=== PATIENT | male | born 1950 | race Caucasian/White ===

== ENCOUNTER → 2016-09-12 | Outpatient (CLI) | payer MEDICARE ==
[~2016-09-12] MED LIST: ISOVUE-370 76% 100ML VIAL (Q9967) As Ordered ONE
--- NOTE | 2016-09-12 22:12 | REP ---
CT chest with IV contrast 09/12/16 comparison: CT chest with contrast 07/27/2016 Indication: Unspecified bacterial pneumonia Technique: Following dynamic IV contrast administration with 75 ml Isovue 370 mg/ml, 3 mm continuous spiral axial sections performed through chest Findings: Thoracic aorta is without aneurysm or dissection. Moderate calcifications in the left anterior descending coronary artery. There is a pericardial effusion of 16 mm maximal depth, seen anteriorly. There are a few small nonspecific mediastinal nodes, none of which are pathologically enlarged. Small amount of atelectatic changes are present within the lung bases bilaterally. There are no alveolar infiltrates or pleural effusions. There has been significant improvement in the patchy ill-defined areas of reticular interstitial infiltrates without discrete pulmonary nodules seen on prior CT chest 07/27/2016. Visualized portions of spleen, pancreas, gallbladder are normal. There is mild diffuse fatty infiltration of liver. Adrenal glands are normal moderate stool within the colon Impression: Pericardial effusion of 16 mm maximal depth anteriorly. Moderate coronary calcifications in left anterior descending coronary artery and to a lesser extent circumflex and right coronary arteries Few small nonspecific mediastinal nodes Small amount of bibasilar atelectasis/scarring with significant improvement in the patchy ill-defined areas of reticular interstitial infiltrates without discrete pulmonary nodules seen on prior CT chest 07/27/2016 Mild diffuse fatty infiltration of liver Signed by May Salvador MD 09/12/2016 10:03 P
== END ==
LOC: M RAD 10:03
PROVIDERS: ATTEND Nurse Practitioner Psychiatric/Mental Health
DX: I31.3 Pericardial effusion (noninflammatory) (principal); R91.8 Other nonspecific abnormal finding of lung field
CPT/HCPCS: 71260; Q9967

== ENCOUNTER → 2016-12-18 | Outpatient (CLI) | payer MEDICARE ==
[2016-12-18 19:25] LABS: ALBUMIN 3.7 GM/DL (3.2-5.2); ALBUMIN/GLOBULIN RATIO 1.76 (1.00-1.93); BILIRUBIN,DIRECT 0.1 MG/DL (0.0-0.2); BILIRUBIN,TOTAL 0.4 MG/DL (0.2-1.0); TOTAL PROTEIN 5.8 GM/DL (6.4-8.2)
== END ==
LOC: M WUC 11:21
PROVIDERS: ATTEND Internal Medicine Gastroenterology
DX: K21.9 Gastro-esophageal reflux disease without esophagitis (principal); E66.9 Obesity, unspecified; Z86.010 Personal history of colon polyps; M72.0 Palmar fascial fibromatosis [Dupuytren]; F10.10 Alcohol abuse, uncomplicated

== ENCOUNTER → 2017-08-22 | Outpatient (CLI) | payer MEDICARE ==
--- NOTE | 2017-08-22 16:14 | REP ---
MRI left hip without contrast: History: Left hip pain. Physical therapy not helping. Comparison study is CT study of the abdomen and pelvis from May 08, 2016. MR technique: Axial, coronal, and sagittal imaging planes are utilized. T2 and T2-weighted scans were obtained in the usual fashion with and without fat saturation. MRI findings: There is moderate nodular enlargement of the prostate gland. The pelvic soft tissues are otherwise unremarkable. No pelvic mass or adenopathy is seen. No abdominal wall defect is observed. There is moderate osteoarthritis of the left hip with obliteration of the superior weightbearing joint space with full-thickness cartilage loss. There is some degenerative change in the superior acetabular labral cartilage. Early subcortical cyst formation is seen in the superior acetabulum. There is a prominent pattern of marrow edema on both sides of the left hip articulation, particularly in the femoral head and neck extending into the intertrochanteric region. This area of marrow edema may reflect stress reaction. No periosteal reaction is seen. There is osteoarthritic spurring along the margin of the femoral head. There is some soft tissue edema involving the joint capsule superiorly and laterally. There is some periarticular edema in the proximal thigh musculature anterior to the proximal femur as well. There is prominent soft tissue edema pattern adjacent to the greater tuberosity of the proximal femur bilaterally consistent with tendonitis. On the right, there is a bursal fluid collection adjacent to the greater trochanter consistent with bursitis. No fluid collection is visible on the left. There is, however, a moderate left-sided hip joint effusion. No loose body is seen. The ligamentum teres is intact. There is no evidence to suggest avascular necrosis or bony destructive lesion. The left hip joint space narrowing has progressed in the interval since the May 08, [address] imaging. Impression: Moderate to advanced osteoarthritis with reactive marrow edema in the femoral head and acetabulum on the left. Possible stress response edema in the intertrochanteric region of the left femur. There is a joint effusion on the left. There is periarticular soft-tissue edema. Peritrochanteric tendonitis pattern is also seen. Tendino-bursitis changes are noted incidentally on the right. Signed by Diomedes Saxena MD 08/22/2017 04:29 P
== END ==
LOC: M RAD 13:50
PROVIDERS: ATTEND Nurse Practitioner Family
DX: M16.12 Unilateral primary osteoarthritis, left hip (principal); R60.0 Localized edema

== ENCOUNTER → 2018-03-27 | Outpatient (CLI) | payer MEDICARE ==
[2018-03-27 13:27] LABS: BASO # 0.1 10^3/uL (0.0-0.2); BASO % 0.9 % (0.0-1.0); EOS # 0.2 10^3/uL (0.0-0.50); EOS % 3.3 % (0.0-3.0); HEMATOCRIT 41.9 % (42.0-52.0); HEMOGLOBIN 14.7 g/dl (13.5-17.5); IMMATURE GRANULOCYTE # 0.1 10^3/uL (0-0); IMMATURE GRANULOCYTE % 1.1 % (0-3.0); LYMPH # 0.9 10^3/uL (1.5-4.5); LYMPH % 16.9 % (24.0-44.0); MEAN CORPUSCULAR HEMOGLOBIN 32.5 pg (27.0-33.0); MEAN CORPUSCULAR HGB CONC 35.1 g/dl (32.0-36.5); MEAN CORPUSCULAR VOLUME 92.7 fl (80.0-96.0); MONO # 0.7 10^3/uL (0.0-0.8); MONO % 12.3 % (0.0-5.0); NEUTROPHILS # 3.6 10^3/uL (1.8-7.7); NEUTROPHILS % 65.5 % (36.0-66.0); PLATELET COUNT, AUTOMATED 201 10^3/uL (150-450); RED BLOOD COUNT 4.52 10^6/uL (4.30-6.10); RED CELL DISTRIBUTION WIDTH 13.7 % (11.5-14.5); WHITE BLOOD COUNT 5.5 10^3/uL (4.0-10.0)
[2018-03-27 13:55] LABS: ALBUMIN 3.6 GM/DL (3.2-5.2); ALBUMIN/GLOBULIN RATIO 1.38 (1.00-1.93); ALKALINE PHOSPHATASE 75 U/L (45-117); ALT/SGPT 42 U/L (12-78); ANION GAP 7 MEQ/L (8-16); AST/SGOT 23 U/L (7-37); BILIRUBIN,TOTAL 0.5 MG/DL (0.2-1.0); BLOOD UREA NITROGEN 15 MG/DL (7-18); CALCIUM LEVEL 8.8 MG/DL (8.8-10.2); CARBON DIOXIDE LEVEL 28 MEQ/L (21-32); CHLORIDE LEVEL 107 MEQ/L (98-107); CHOLESTEROL LEVEL 161 MG/DL (<200); CHOLESTEROL RISK RATIO 2.683 (<5); CREATININE FOR GFR 0.77 MG/DL (0.70-1.30); GLOMERULAR FILTRATION RATE > 60.0 (>49); GLUCOSE, FASTING 93 MG/DL (70-100); HDL CHOLESTEROL 60 MG/DL (>40); LDL CHOLESTEROL 74.2 MG/DL (<100); NON-HDL-C 101 MG/DL; POTASSIUM SERUM 4.5 MEQ/L (3.5-5.1); SODIUM LEVEL 142 MEQ/L (136-145); TOTAL PROTEIN 6.2 GM/DL (6.4-8.2); TRIGLYCERIDES LEVEL 134 MG/DL (<150)
== END ==
LOC: M WUC 11:55
DX: I10 Essential (primary) hypertension (principal); E78.00 Pure hypercholesterolemia, unspecified
CPT/HCPCS: 80053

== ENCOUNTER → 2019-03-31 | Outpatient (CLI) | payer MEDICARE ==
[2019-03-31 13:24] LABS: BASO # 0.1 10^3/uL (0.0-0.2); BASO % 1.1 % (0.0-1.0); EOS # 0.2 10^3/uL (0.0-0.50); EOS % 3.8 % (0.0-3.0); HEMATOCRIT 43.6 % (42.0-52.0); HEMOGLOBIN 14.8 g/dl (13.5-17.5); LYMPH # 0.9 10^3/uL (1.5-4.5); LYMPH % 18.9 % (24.0-44.0); MEAN CORPUSCULAR HEMOGLOBIN 32.7 pg (27.0-33.0); MEAN CORPUSCULAR HGB CONC 33.9 g/dl (32.0-36.5); MEAN CORPUSCULAR VOLUME 96.5 fl (80.0-96.0); MONO # 0.5 10^3/uL (0.0-0.8); NEUTROPHILS % 64.6 % (36.0-66.0); PLATELET COUNT, AUTOMATED 183 10^3/uL (150-450); RED BLOOD COUNT 4.52 10^6/uL (4.30-6.10); WHITE BLOOD COUNT 4.7 10^3/uL (4.0-10.0)
[2019-03-31 13:53] LABS: ALBUMIN 3.8 GM/DL (3.2-5.2); ALT/SGPT 44 U/L (12-78); BILIRUBIN,TOTAL 0.5 MG/DL (0.2-1.0); BLOOD UREA NITROGEN 15 MG/DL (7-18); CALCIUM LEVEL 8.8 MG/DL (8.8-10.2); CARBON DIOXIDE LEVEL 27 MEQ/L (21-32); CHLORIDE LEVEL 109 MEQ/L (98-107); CHOLESTEROL LEVEL 157 MG/DL (<200); CHOLESTEROL RISK RATIO 2.754 (<5); GLOMERULAR FILTRATION RATE > 60.0 (>42); GLUCOSE, FASTING 91 MG/DL (70-100); HDL CHOLESTEROL 57 MG/DL (>40); LDL CHOLESTEROL 75 MG/DL (<100); NON-HDL-C 100 MG/DL; POTASSIUM SERUM 4.4 MEQ/L (3.5-5.1); SODIUM LEVEL 141 MEQ/L (136-145); TOTAL PROTEIN 6.2 GM/DL (6.4-8.2); TRIGLYCERIDES LEVEL 123 MG/DL (<150)
[2019-03-31 13:56] LABS: TOTAL 25(OH) VITAMIN D 25.4 NG/ML (30.0-100.0)
== END ==
LOC: M WUC 09:55
PROVIDERS: ATTEND Nurse Practitioner Family
DX: E55.9 Vitamin D deficiency, unspecified (principal); I10 Essential (primary) hypertension; N40.0 Benign prostatic hyperplasia without lower urinary tract symptoms; E78.00 Pure hypercholesterolemia, unspecified

== ENCOUNTER → 2020-06-09 | Outpatient (CLI) | payer MEDICARE ==
--- NOTE | 2020-06-14 10:46 | REP ---
CHEST X-RAY CLINICAL: Shortness of breath. TECHNIQUE: PA and lateral. COMPARISON: 07/06/2016. FINDINGS: Very subtle lower lobe airspace disease cannot be excluded and should be correlated clinically. These findings cannot be confirmed on lateral radiograph. The mediastinum and cardiac silhouette are stable. Skeletal structures are intact. Previously noted nodular density in the right mid lung zone not visible on current exam. IMPRESSION: Cannot exclude subtle airspace disease to the bilateral lower lobes (left greater than right). Previously noted nodule in the right mid lung zone not visualized on current exam. MTDD
== END ==
LOC: M WUC 12:11
PROVIDERS: ATTEND Nurse Practitioner Adult Health
DX: R06.02 Shortness of breath (principal); R91.8 Other nonspecific abnormal finding of lung field

== ENCOUNTER → 2021-01-12 | Outpatient (CLI) | payer MEDICARE ==
[2021-01-12 16:51] LABS: ALBUMIN 3.9 GM/DL (3.2-5.2); PERCENT SATURATION 24.8 % (19.7-50.0)
== END ==
LOC: M WUC 11:03
PROVIDERS: ATTEND Orthopaedic Surgery
DX: Z01.818 Encounter for other preprocedural examination (principal); M16.9 Osteoarthritis of hip, unspecified; M25.551 Pain in right hip

== ENCOUNTER → 2021-01-28 | Outpatient (REF) | payer MEDICARE ==
[2021-01-28 16:21] LABS: APPEARANCE, URINE CLOUDY (CLEAR); BACTERIA, URINE AUTO NEGATIVE (NEGATIVE); BILIRUBIN, URINE AUTO NEGATIVE (NEGATIVE); BLOOD, URINE BLOOD NEGATIVE (NEGATIVE); COLOR, URINE AMBER (YELLOW); GLUCOSE, URINE (UA) AUTO NEGATIVE (NEGATIVE); KETONE, URINE AUTO NEGATIVE (NEGATIVE); LEUKOCYTE ESTERASE, URINE AUTO NEGATIVE (NEGATIVE); MUCUS, URINE SMALL (NEGATIVE); NITRITE, URINE AUTO NEGATIVE (NEGATIVE); PROTEIN, URINE AUTO NEGATIVE (NEGATIVE); RBC, URINE AUTO 1 /HPF (0-3); SPECIFIC GRAVITY URINE AUTO 1.019 (1.002-1.035); SQUAMOUS EPITHELIAL CELL UR AU 0 /HPF (0-6); UROBILINOGEN, URINE AUTO 0.2 mg/dL (0.0-2.0); WBC, URINE AUTO 1 /HPF (0-3)
[2021-01-28 16:22] LABS: INR 0.95; PARTIAL THROMBOPLASTIN TIME 27.3 SECONDS (24.2-38.5); PROTHROMBIN TIME 12.9 SECONDS (12.5-14.3)
== END ==
LOC: M LAB REF 15:50
PROVIDERS: ATTEND Internal Medicine
DX: Z01.810 Encounter for preprocedural cardiovascular examination (principal)

== ENCOUNTER → 2021-08-24 | Outpatient (CLI) | payer MEDICARE ==
--- NOTE | 2021-08-24 13:46 | REP ---
INDICATION: PAIN COMPARISON: None. TECHNIQUE: Internal rotation, external rotation, and Y view. FINDINGS: There is no evidence for acute fracture or dislocation. The glenohumeral joint is essentially intact and age-appropriate. The acromioclavicular joint demonstrates moderate to significant cortical irregularity and osteophytosis. IMPRESSION: Arthritic changes at the acromioclavicular joint. No obvious acute fracture or dislocation. <Electronically signed by Justin Samano > 08/24/21 [id number]
== END ==
LOC: M WUC 13:09
PROVIDERS: ATTEND Nurse Practitioner Adult Health
DX: M25.511 Pain in right shoulder (principal); M19.011 Primary osteoarthritis, right shoulder

== ENCOUNTER → 2021-11-23 | Outpatient (REF) | payer MEDICARE | LOC: M LAB REF 16:07 | PROVIDERS: ATTEND Nurse Practitioner Adult Health | DX: I10 Essential (primary) hypertension (principal); R97.20 Elevated prostate specific antigen [PSA] ==

== ENCOUNTER → 2021-12-08 | Outpatient (REF) | payer MEDICARE ==
[2021-12-08 14:32] LABS: APPEARANCE, URINE CLOUDY (CLEAR); BACTERIA, URINE AUTO NEGATIVE (NEGATIVE); BILIRUBIN, URINE AUTO NEGATIVE (NEGATIVE); BLOOD, URINE BLOOD NEGATIVE (NEGATIVE); COLOR, URINE AMBER (YELLOW); GLUCOSE, URINE (UA) AUTO NEGATIVE (NEGATIVE); KETONE, URINE AUTO NEGATIVE (NEGATIVE); LEUKOCYTE ESTERASE, URINE AUTO NEGATIVE (NEGATIVE); NITRITE, URINE AUTO NEGATIVE (NEGATIVE); PROTEIN, URINE AUTO NEGATIVE (NEGATIVE); RBC, URINE AUTO 0 /HPF (0-3); SPECIFIC GRAVITY URINE AUTO 1.015 (1.002-1.035); SQUAMOUS EPITHELIAL CELL UR AU 0 /HPF (0-6); UROBILINOGEN, URINE AUTO 0.2 mg/dL (0.0-2.0); WBC, URINE AUTO 1 /HPF (0-3)
== END ==
LOC: M SMT 13:17
PROVIDERS: ATTEND Urology
DX: N40.0 Benign prostatic hyperplasia without lower urinary tract symptoms (principal)

== ENCOUNTER → 2022-09-28 | Outpatient (CLI) | payer MEDICARE | LOC: M WUC 10:56 | PROVIDERS: ATTEND Internal Medicine Gastroenterology | DX: D50.9 Iron deficiency anemia, unspecified (principal); K57.30 Diverticulosis of large intestine without perforation or abscess without bleeding; K21.9 Gastro-esophageal reflux disease without esophagitis; Z86.010 Personal history of colon polyps; E66.9 Obesity, unspecified; K76.0 Fatty (change of) liver, not elsewhere classified ==

== ENCOUNTER → 2024-08-25 | Outpatient (CLI) | payer MEDICARE ==
[2024-08-25 13:16] LABS: BLOOD UREA NITROGEN 22 MG/DL (9-23); C REACTIVE PROTEIN QUANTITATIV < 0.50 MG/DL (<1.0); CARBON DIOXIDE LEVEL 28 MMOL/L (20-31); CHLORIDE LEVEL 102 MMOL/L (98-107); GLOMERULAR FILTRATION RATE > 60.0 (>42); GLUCOSE, FASTING 97 MG/DL (74-106); POTASSIUM SERUM 4.4 MMOL/L (3.5-5.1); SODIUM LEVEL 138 MMOL/L (136-145)
== END ==
LOC: M WUC 10:27
PROVIDERS: ATTEND Internal Medicine Cardiovascular Disease
DX: I31.39 Other pericardial effusion (noninflammatory) (principal)

== ENCOUNTER → 2024-09-08 | Outpatient (CLI) | payer MEDICARE ==
[~2024-09-08] MED LIST changes: -ISOVUE-370 76% 100ML VIAL (Q9967) As Ordered ONE; +ISOVUE-370 76% 100ML VIAL ONE
== END ==
LOC: M PLAIMG 09:59
PROVIDERS: ATTEND Internal Medicine Cardiovascular Disease
DX: I31.39 Other pericardial effusion (noninflammatory) (principal); I51.7 Cardiomegaly; J84.9 Interstitial pulmonary disease, unspecified; I25.10 Atherosclerotic heart disease of native coronary artery without angina pectoris; I25.84 Coronary atherosclerosis due to calcified coronary lesion; K76.0 Fatty (change of) liver, not elsewhere classified; D73.9 Disease of spleen, unspecified
CPT/HCPCS: 71260; Q9967

== ENCOUNTER → 2024-09-17 | Outpatient (CLI) | payer MEDICARE ==
[2024-09-17 18:02] LABS: BASO # 0.1 10^3/uL (0.0-0.2); BASO % 0.8 % (0.0-1.0); EOS # 0.2 10^3/uL (0.0-0.5); EOS % 3.5 % (0.0-3.0); HEMOGLOBIN 12.2 g/dl (13.5-17.5); LYMPH # 0.9 10^3/uL (1.5-5.0); LYMPH % 14.1 % (24.0-44.0); MEAN CORPUSCULAR HEMOGLOBIN 29.5 pg (27.0-33.0); MEAN CORPUSCULAR HGB CONC 32.1 g/dl (32.0-36.5); MONO # 0.9 10^3/uL (0.0-0.8); MONO % 13.5 % (2.0-8.0); NEUTROPHILS # 4.3 10^3/uL (1.5-8.5); NEUTROPHILS % 67.6 % (36.0-66.0); PLATELET COUNT, AUTOMATED 253 10^3/uL (150-450); RED BLOOD COUNT 4.13 10^6/uL (4.30-6.10); WHITE BLOOD COUNT 6.4 10^3/uL (4.0-10.0)
== END ==
LOC: M WUC 13:02
PROVIDERS: ATTEND Internal Medicine Cardiovascular Disease
DX: I31.39 Other pericardial effusion (noninflammatory) (principal)

== ENCOUNTER → 2024-10-02 | Outpatient (REF) | payer MEDICARE | LOC: M LAB REF 12:49 | PROVIDERS: ATTEND Internal Medicine | DX: N39.0 Urinary tract infection, site not specified (principal) ==

== ENCOUNTER → 2024-12-23 | Outpatient (REF) | payer MEDICARE | LOC: M LABWUC 14:17 | PROVIDERS: ATTEND Urology | DX: R97.20 Elevated prostate specific antigen [PSA] (principal) ==